=== PATIENT | male | born 1960 | race Caucasian/White ===

== ENCOUNTER 2017-03-03 21:17 | Emergency (ER) | payer OTHER ==
[~2017-03-03] VITALS: Ht 177.8 cm; Wt 108.9 kg
[~2017-03-03 21:17] MED LIST: ENOX100D3 SQ; WARF5TAB2 PO
[2017-03-03 21:21] VITALS: BP_SYST 143
[2017-03-03] MEDS ORDERED: ALBUTEROL SULFATE 0.083% 2.5 MG/3 ML VIAL.NEB IH ONE (21:45)
[2017-03-03] MEDS ORDERED: IPRATROPIUM BROM 0.5 MG/2.5 ML VIAL.NEB (ATROVENT) IH ONE (21:45)
[2017-03-03] MEDS ORDERED: ASPIRIN 81 MG TAB.CHEW PO ONE (21:45)
[2017-03-03] MEDS ORDERED: methylPREDNISolone SOD SUCC/PF 62.5 MG/ML VIAL IVP ONE (21:45)
[2017-03-03 21:58] LABS: BASOPHILS # (AUTO) 0.1 K/uL (0.0-0.2); BASOPHILS % (AUTO) 0.6 % (0.0-2.0); EOSINOPHILS # (AUTO) 0.4 K/uL (0.0-0.4); EOSINOPHILS % (AUTO) 3.8 % (0.0-4.0); HEMATOCRIT 40.9 % (36-54); HEMOGLOBIN 13.9 g/dL (14.0-18.0); LYMPHOCYTES # (AUTO) 3.2 K/uL (1.0-5.5); LYMPHOCYTES % (AUTO) 29.7 % (20.5-51.5); MEAN CORPUSCULAR HEMOGLOBIN 31 pg (27-31); MEAN CORPUSCULAR HGB CONC 34 % (32-36); MEAN CORPUSCULAR VOLUME 92 fL (79.0-98.0); MONOCYTES # (AUTO) 0.9 K/uL (0.0-1.0); MONOCYTES % (AUTO) 8.3 % (1.7-9.3); NEUTROPHILS # (AUTO) 6.1 K/uL (1.8-7.7); NEUTROPHILS % (AUTO) 57.6 % (40.0-70.0); PLATELET COUNT (AUTO) 293 K/uL (130-430); RED BLOOD CELL COUNT(AUTO) 4.46 MIL/uL (4.2-6.2); RED CELL DISTRIBUTION WIDTH 12.5 % (9.0-15.0); WHITE BLOOD COUNT (AUTO) 10.7 K/uL (4.8-10.8)
[2017-03-03 22:08] LABS: CALCIUM 9.1 mg/dL (8.4-11.0); CREATININE 1.12 mg/dL (0.55-1.30); POTASSIUM 3.7 mmol/L (3.5-5.1)
[2017-03-03 22:13] LABS: ALBUMIN 3.6 g/dL (3.4-4.8); PROTHROMBIN TIME 11.1 SECS (9.5-12.5); TOTAL BILIRUBIN 0.4 mg/dL (0.0-1.0); TOTAL PROTEIN, SERUM 7.5 g/dL (6.4-8.3)
[2017-03-03 23:15] VITALS: BP_SYST 140
== END 2017-03-03 23:05 | disposition home or self-care (01) ==
LOC: SED 21:17
DX: J20.9 Acute bronchitis, unspecified (principal); Z86.718 Personal history of other venous thrombosis and embolism
CPT/HCPCS: 36415; 71020; 80053; 82550; 83880; 84484; 85025; 85610; 85730; 93005; 94640; 96374; 99285; J2930

== ENCOUNTER 2017-04-06 07:56 | Inpatient (IN) | payer OTHER ==
[~2017-04-06] VITALS: Ht 177.8 cm; Wt 111.1 kg
[2017-04-06] VITALS (12 sets, daily range): BP systolic 91–141
--- NOTE | 2017-04-06 08:18 | NUR ---
Pt brought to room 8 c/c persistant cough and some chest discomfort, EKG in progress at bedside. Sinus tach at 148 bpm.
--- NOTE | 2017-04-06 08:21 | NUR ---
MD Hampton at bedside.
[2017-04-06 08:31] LABS: BASOPHILS # (AUTO) 0.1 K/uL (0.0-0.2); BASOPHILS % (AUTO) 0.4 % (0.0-2.0); EOSINOPHILS # (AUTO) 0.1 K/uL (0.0-0.4); EOSINOPHILS % (AUTO) 0.7 % (0.0-4.0); HEMATOCRIT 47.5 % (36-54); HEMOGLOBIN 15.6 g/dL (14.0-18.0); LYMPHOCYTES # (AUTO) 2.2 K/uL (1.0-5.5); MEAN CORPUSCULAR HEMOGLOBIN 31 pg (27-31); MEAN CORPUSCULAR HGB CONC 33 % (32-36); MEAN CORPUSCULAR VOLUME 93 fL (79.0-98.0); MONOCYTES # (AUTO) 0.9 K/uL (0.0-1.0); MONOCYTES % (AUTO) 6.9 % (1.7-9.3); NEUTROPHILS # (AUTO) 9.8 K/uL (1.8-7.7); PLATELET COUNT (AUTO) 173 K/uL (130-430); RED CELL DISTRIBUTION WIDTH 13.1 % (9.0-15.0); WHITE BLOOD COUNT (AUTO) 13.1 K/uL (4.8-10.8)
[2017-04-06 08:52] LABS: INR 1.2 (0.80-1.20); PROTHROMBIN TIME 12.5 SECS (9.5-12.5)
[2017-04-06 08:54] LABS: CALCIUM 9.5 mg/dL (8.4-11.0); CREATININE 1.08 mg/dL (0.55-1.30)
[2017-04-06 08:57] LABS: ALBUMIN 3.9 g/dL (3.4-4.8); TOTAL BILIRUBIN 1.9 mg/dL (0.0-1.0); TOTAL PROTEIN, SERUM 8.3 g/dL (6.4-8.3)
--- NOTE | 2017-04-06 10:00 | NUR ---
Pt taken to CT scan.
[2017-04-06] MEDS ORDERED: IOHEXOL 350 mgI/mL, 150 ML INFUS..BTL IV ONE (10:01)
[2017-04-06] MEDS ORDERED: NACL 0.9% 1,000 ML IV ONE (12:30)
[2017-04-06] MEDS ORDERED: *HEPARIN PER PHARMACY XX PRN (12:30)
[2017-04-06] MEDS ORDERED: POTASSIUM CHLORIDE 10 MEQ TAB.PRT.SR PO ONE (12:45)
--- NOTE | 2017-04-06 13:05 | NUR ---
Patient will be admitted to care of Dr. Ray. Admitted to ICU unit. Will go to room 2. Belongings list completed. Summary report printed. Bedside report given to Sally Toscano RN.
--- NOTE | 2017-04-06 13:10 | NUR ---
ADMISSION NOTE. PT RECEIVED IN ICU BED 2, AWAKE AND ALERT, WITH CHIEF COMPLAINT OF FEELING SHORT OF BREATH, "I ALWAYS CATCH A COLD, BEEN REALLY SICK BEFORE I CAME IN", HEART RATE SHOWING ON THE MONITOR GOING BETWEEN 146 TO 152, SINUS MODE, PAGED DR REYNA FOR ORDERS.
--- NOTE | 2017-04-06 13:13 | NUR ---
consult for dr. mario called spoke to asher dialed [phone] gallegos called spoke to ericka dialed [phone] shaffer called spoke to ericka dialed [phone]
[2017-04-06] MEDS ORDERED: HEPARIN SODIUM,PORCINE 5000 UNITS/ML VIAL IVP ONE (13:30)
[2017-04-06] MEDS ORDERED: HEPARIN SODIUM,PORCINE 3000 UNITS/0.6 ML BOLUS IVP PRN (13:30)
--- NOTE | 2017-04-06 13:45 | NUR ---
Paged dr. mario spoke to Joy dialed [phone]
--- NOTE | 2017-04-06 14:25 | NUR ---
Paged dr. mario spoke to Joy dialed [phone]
--- NOTE | 2017-04-06 14:30 | NUR ---
TEST. PT HAVE JUST HAD AN ECHOCARDIOGRAM.
--- NOTE | 2017-04-06 14:39 | NUR ---
MEDS. PT STARTED ON HEPARIN 500 IVP LOADING DOSE. HEPARIN DRIP AT 1200 UNIT/HR, PTT 27, NEXT PTT DRAW AT 2100.
[2017-04-06] MEDS: HEPARIN 25,000 UNITS in 250 ML PREMIX IV PRN (14:44)
[2017-04-06] MEDS ORDERED: DILTIAZEM HCL 125 MG in D5W 100 ML IV SCH ×2 (15:00→18:30)
[2017-04-06] MEDS ORDERED: DILTIAZEM HCL 25 MG/5 ML VIAL IVP ONE (15:00)
--- NOTE | 2017-04-06 15:36 | NUR ---
MEDS. DR REYNA RETURNED THE CALL. REPORTED PT'S STATUS, HIS CURRENT LABS, AND CARDIAC RATE. NEW ORDERS RECEIVED. NEW IV INSERTED IN LEFT HAND, USING 22 GAUGE CATHETER. CARDIZEM 20 MG IVP AND CARDIZEM DRIP AT 10 MG/HR ADMINISTERED.
--- NOTE | 2017-04-06 16:50 | NUR ---
CARDIO. NURSE PRACTITIONER ASSESSING PT. GENERAL MAINTENANCE TECHNICIAN ON ATRIAL FLUTTER.
--- NOTE | 2017-04-06 17:45 | NUR ---
PULMO CONSULT. PT SEEN AND EXAMINED BY DR FRANCISCO.
--- NOTE | 2017-04-06 18:15 | NUR ---
CARDIOLOGY CONSULT. DR REYNA IN THE ROOM TALKING TO PT.
[2017-04-06 18:30] LABS: THYROID STIMULATING HORMONE 1.36 uIu/mL (0.34-4.82)
[2017-04-06] MEDS ORDERED: METOPROLOL SUCCINATE 50 MG TAB.SR.24H (TOPROL XL) PO SCH (18:30)
--- NOTE | 2017-04-06 18:50 | NUR ---
IV DRIPS. PT REMAINS ON HEPARIN DRIP AT 1200 UNIT PER HR, CHANGED CARDIZEM DRIP TO 15 MG PER HR. HEART RATE 112, ATRIAL FLUTTER.
--- NOTE | 2017-04-06 20:00 | NUR ---
PM SHIFT ASSESSMENT, PT AAO.DENIES ANY CHEST PAIN, STATED WHEN I COUGH IT HURTS BECAUSE I HAVE PLEURISY ;.IN ATRIAL FLUTTER WITH VARYING CONDUCTION. HEPARIN DRIP INFUSING @1200UNITS /H.
[2017-04-06] MEDS ORDERED: NACL 0.9% 1,000 ML IV SCH (20:03)
[2017-04-06] MEDS: METOPROLOL TARTRATE 50 MG TABLET PO SCH (20:15)
--- NOTE | 2017-04-06 21:00 | NUR ---
VARSHA ANDRADE BY LAB,
[2017-04-06] MEDS: HEPARIN SODIUM,PORCINE 2000 UNITS/0.4 ML BOLUS IVP PRN (22:40)
--- NOTE | 2017-04-06 22:40 | NUR ---
APTT 36.7, PT ON HEPARIN PROTOCOL , HEPARIN 2000UNITS IVP GIVEN AND INCREASED HEPARIN DRIP TO 1400 UNITS /H. WILL DO APTT AGAIN AFTER 6 HRS.
[2017-04-06] MEDS ORDERED: AMIODARONE HCL 150 MG in D5W 100 ML IV SCH (22:45)
--- NOTE | 2017-04-06 22:50 | NUR ---
CALLED, ORDERS RECEIVED TO START ON AMIODARONE DRIP, AMIODARONE 150MG IV BOLUS GIVEN AND THEN STARTED THE DRIP @1 MG/MIN. CONTINUE TO BE IN ATRIAL FLUTTER.
[2017-04-06] MEDS ORDERED: AMIODARONE HCL 150 MG/3ML VIAL ONE (23:02)
[2017-04-06] MEDS ORDERED: AMIODARONE HCL 900 MG/18 ML VIAL IV ONE (23:03)
[2017-04-06] MEDS: AMIODARONE HCL 900 MG in D5W 482 ML IV SCH (23:33)
[2017-04-06] MEDS: DILTIAZEM HCL 125 MG in D5W 100 ML IV SCH (23:47)
[2017-04-07] VITALS (24 sets, daily range): BP systolic 72–135
--- NOTE | 2017-04-07 01:45 | NUR ---
SBP IN THE 70,S- 80,S. NOTIFIED DR. REYNA AND ORDERS RECEIVED TO GIVE 250 ML NS IV BOLUS AND TO DECREASE CARDIZEM TO 10 MG/H ORDERS CARRIED OUT.
--- NOTE | 2017-04-07 02:10 | NUR ---
NS IV BOLUS GIVEN AND CARDIZEM DRIP DECREASED TO 10 MG/H.
[2017-04-07] MEDS ORDERED: NS 250 ML IV ONE (02:15)
--- NOTE | 2017-04-07 03:00 | NUR ---
BP STILL LOW, CARDIZEM DRIP TAPERED TO 5 MG/H.
--- NOTE | 2017-04-07 05:30 | NUR ---
AMIODARONE DRIP NOW DOWN TO 0.5 MG/MIN PER PROTOCOL.
--- NOTE | 2017-04-07 07:00 | NUR ---
REPORT GIVEN TO ON COMING RN. PT STILL IN ATRIAL FLUTTER.
[2017-04-07 07:09] LABS: BASOPHILS # (AUTO) 0.1 K/uL (0.0-0.2); BASOPHILS % (AUTO) 0.5 % (0.0-2.0); EOSINOPHILS # (AUTO) 0.2 K/uL (0.0-0.4); EOSINOPHILS % (AUTO) 1.4 % (0.0-4.0); HEMATOCRIT 37.6 % (36-54); HEMOGLOBIN 13.1 g/dL (14.0-18.0); LYMPHOCYTES # (AUTO) 4.1 K/uL (1.0-5.5); LYMPHOCYTES % (AUTO) 35.3 % (20.5-51.5); MEAN CORPUSCULAR HEMOGLOBIN 32 pg (27-31); MEAN CORPUSCULAR HGB CONC 35 % (32-36); MEAN CORPUSCULAR VOLUME 93 fL (79.0-98.0); MONOCYTES # (AUTO) 0.8 K/uL (0.0-1.0); MONOCYTES % (AUTO) 6.8 % (1.7-9.3); NEUTROPHILS # (AUTO) 6.3 K/uL (1.8-7.7); PLATELET COUNT (AUTO) 122 K/uL (130-430); RED BLOOD CELL COUNT(AUTO) 4.05 MIL/uL (4.2-6.2); RED CELL DISTRIBUTION WIDTH 13.3 % (9.0-15.0); WHITE BLOOD COUNT (AUTO) 11.5 K/uL (4.8-10.8)
[2017-04-07] MEDS: METOPROLOL TARTRATE 50 MG TABLET PO SCH ×3 (07:11→21:48)
[2017-04-07 07:21] LABS: ALBUMIN 3.1 g/dL (3.4-4.8); CALCIUM 8.6 mg/dL (8.4-11.0); CREATININE 0.88 mg/dL (0.55-1.30); POTASSIUM 3.2 mmol/L (3.5-5.1); TOTAL BILIRUBIN 1.2 mg/dL (0.0-1.0); TOTAL PROTEIN, SERUM 6.7 g/dL (6.4-8.3)
--- NOTE | 2017-04-07 07:45 | NUR ---
AM ASSESSMENT. PT ALERT, ON ROOM AIR, SMILES WHEN APPROACHED, RECEIVING HEPARIN DRIP AT 1400 UNIT/HR, AMIODARONE DRIP AT 0.5 MG/HR, CARDIZEM DRIP AT 5 MG PER HR, NS AT 70 ML PER HR, IV SITE CLEAR, NO S/SX OF INFILTRATION, RADIOLOGY SPECIAL PROCEDURE TECH ON ATRIAL FLUTTER, CONTINUE TO MONITOR.
[2017-04-07] MEDS: HEPARIN 25,000 UNITS in 250 ML PREMIX IV PRN ×2 (07:52→21:47)
--- NOTE | 2017-04-07 08:30 | NUR ---
IV DRIPS. PTT 41, TITRATED HEPARIN DRIP TO 1500 UNIT/HR, WILL CHECK PTT AT 1430 TODAY.
[2017-04-07] MEDS ORDERED: POTASSIUM CHLORIDE 20 MEQ TAB.PRT.SR PO ONE (09:30)
--- NOTE | 2017-04-07 10:00 | NUR ---
ACTIVITY. PT DESIRED TO USE THE COMMODE, WITH GOOD RANGE OF MOTION, MILD ASSIST WITH PERSONAL HYGIENE, LINEN AND GOWN, CHG WIPES AND WET WIPES USED, TOOTH PASTE AND TOOTH BRUSH PROVIDED FOR ORAL CARE.
--- NOTE | 2017-04-07 13:10 | NUR ---
PARENT EDUCATOR. DR REYNA CAME IN AND WENT TO SEE PT, PLAN TO DO CARDIOVERSION. WILL DO TOMORROW, PT ALREADY HAD HIS LUNCH.
[2017-04-07] MEDS: HEPARIN SODIUM,PORCINE 2000 UNITS/0.4 ML BOLUS IVP PRN (17:11)
--- NOTE | 2017-04-07 17:14 | NUR ---
IV DRIPS. PTT 40.6, FOLLOWED PROTOCOL WITH 2000 UNITS IVP OF HEPARIN, THEN ADJUSTED RATE TO 1700 UNIT PER HR.
--- NOTE | 2017-04-07 19:00 | NUR ---
REPORT. GIVEN TO ONCOMING NURSE.
--- NOTE | 2017-04-07 19:30 | NUR ---
PM ASSESSMENT PT AWAKE, AFEBRILE. RA, AUSCULTATED BILAT LUNGS CLEAR, NO SOB OR DISTRESS. AFLUTTER ON THE MONITOR. AMBULATES W/ STEADY GAIT. IV SITE ON THE LT HAND 22G, INTACT AND PATENT. IV SITE ON LT AC 20G, INTACT AND PATENT. INFUSING HEPARIN, CARDIZEM AND AMIODARONE. POC DISCUSSED, PT STATED UNDERSTANDING, ORIENTED TO CALL LIGHT & W/IN, SAFETY PRECAUTIONS IN PLACE, WILL CONTINUE TO MONITOR.
--- NOTE | 2017-04-07 19:30 | NUR ---
REFUSE BEDPAN PT EDUCATED ABOUT DX OF DVT AND IMPORTANCE OF BEDREST, PT STILL REFUSES TO USES BEDPAN AND STATES HE WILL ONLY USE THE BEDSIDE TOILET. ASSISTED PT TO TOILET, PT TOLERATED WELL. CALL LIGHT W/IN REACH, SAFETY PRECAUTIONS IN PLACE.
[2017-04-07] MEDS ORDERED: AMIODARONE HCL 900 MG/18 ML VIAL IV ONE (21:33)
[2017-04-07] MEDS ORDERED: DILTIAZEM HCL 125 MG/25 ML VIAL IV ONE (21:34)
[2017-04-07] MEDS: AMIODARONE HCL 900 MG in D5W 482 ML IV SCH (21:42)
[2017-04-07] MEDS: DILTIAZEM HCL 125 MG in D5W 100 ML IV SCH (21:43)
--- NOTE | 2017-04-07 23:00 | NUR ---
DR. AXEL REYNA CALLED REGARDING CARDIOVERSION IN THE AM.
[2017-04-08] VITALS (15 sets, daily range): BP systolic 69–128
[2017-04-08] MEDS: HEPARIN 25,000 UNITS in 250 ML PREMIX IV PRN (01:25)
[2017-04-08] MEDS ORDERED: fentaNYL CITRATE/PF 100 MCG/2 ML AMP IVP ONE (07:15)
[2017-04-08] MEDS ORDERED: MIDAZOLAM HCL 5 MG/5 ML VIAL IVP ONE (07:15)
--- NOTE | 2017-04-08 07:15 | NUR ---
CLOSING NOTE ALL NEEDS MET. ENDORSED CARE AT BEDSIDE TO ICU NURSE.
--- NOTE | 2017-04-08 07:22 | NUR ---
CARDIOVERSION Dr. Flynn at bedside. MD ordered fentanyl 50 mcg IVP and Versed 2 mg IVP at bedside. Medication administered with MD at bedside. Addendum: 04/08/17 at 0750 by Fidel Hay RN Patient Cardioverted per MD order. Patient converted to sinus rhythm. Nurse remains at bedside to monitor.
[2017-04-08] MEDS ORDERED: fentaNYL CITRATE/PF 100 MCG/2 ML AMP ONE (07:23)
[2017-04-08] MEDS ORDERED: MIDAZOLAM HCL 5 MG/5 ML VIAL ONE (07:24)
--- NOTE | 2017-04-08 07:50 | NUR ---
BEGINNING OF SHIFT ASSESSMENT Received patient awake,alert and oriented x 4, conversing with Dr. Ray at bedside. Patient is sinus rhythm on air sampling and monitoring. Clear lung sounds heard through out. Patient has Left AC #20, all port patent, flushable with blood return, no redness, infection noted. Patient voids using urinal at bedside for safety. Bed is locked in lowest position, call light within easy reach, upper side rails x 2 up, HOB elevated. Will continue to monitor closely.
[2017-04-08] MEDS ORDERED: AMIODARONE HCL 200 MG TABLET PO ONE (08:00)
--- NOTE | 2017-04-08 08:20 | NUR ---
PT UPDATE Patient resting in bed, sitting upright conversing with Dr. Bowers at bedside, no signs of distress, vss noted. Will continue to monitor closely.
[2017-04-08] MEDS: RIVAROXABAN 15 MG TABLET PO SCH ×2 (08:36→21:43)
[2017-04-08 08:37] LABS: BASOPHILS # (AUTO) 0.1 K/uL (0.0-0.2); BASOPHILS % (AUTO) 0.3 % (0.0-2.0); EOSINOPHILS # (AUTO) 0.1 K/uL (0.0-0.4); EOSINOPHILS % (AUTO) 0.6 % (0.0-4.0); HEMATOCRIT 37.4 % (36-54); HEMOGLOBIN 12.7 g/dL (14.0-18.0); LYMPHOCYTES # (AUTO) 2.9 K/uL (1.0-5.5); LYMPHOCYTES % (AUTO) 17.3 % (20.5-51.5); MEAN CORPUSCULAR HEMOGLOBIN 32 pg (27-31); MEAN CORPUSCULAR HGB CONC 34 % (32-36); MEAN CORPUSCULAR VOLUME 94 fL (79.0-98.0); MONOCYTES # (AUTO) 0.6 K/uL (0.0-1.0); MONOCYTES % (AUTO) 3.8 % (1.7-9.3); NEUTROPHILS # (AUTO) 13.3 K/uL (1.8-7.7); PLATELET COUNT (AUTO) 144 K/uL (130-430); RED CELL DISTRIBUTION WIDTH 13.5 % (9.0-15.0)
[2017-04-08] MEDS: METOPROLOL TARTRATE 50 MG TABLET PO SCH ×2 (08:46→21:43)
[2017-04-08 08:56] LABS: ALBUMIN 3.3 g/dL (3.4-4.8); CALCIUM 8.8 mg/dL (8.4-11.0); CREATININE 0.96 mg/dL (0.55-1.30); POTASSIUM 3.4 mmol/L (3.5-5.1); TOTAL BILIRUBIN 1.3 mg/dL (0.0-1.0); TOTAL PROTEIN, SERUM 7.1 g/dL (6.4-8.3)
--- NOTE | 2017-04-08 10:00 | NUR ---
TRANSFER TO TELE Patient transferred to tele via gurney via [employer] with licensed staff x 2. IV site patent, no redness, infection noted. No IVF infusing at this time. Report given to nurse at bedside. No signs of distress, vss noted.
--- NOTE | 2017-04-08 10:05 | NUR ---
PATIENT TRANSFERRED FROM ICU PATIENT ALERT AND ORIENTED X4, NO S/S OF ACUTE DISTRESS NOTED, BREATHING EVEN AND UNLABORED, VSS, IV TO LAC INTACT, SALINE LOCKED, PT ORIENTED TO ROOM AND USE OF CALL LIGHT AND PHONE, COMMONLY USED ITEMS PLACED WITHIN REACH, PT HAS STEADY GAIT, PT EDUCATED REGARDING CALL FOR ASSISTANCE TO RESTROOM, SINCE HE IS NEW STEP DOWN FROM ICU, PT VERBALIZED UNDERSTANDING, BED ALARM REFUSED, PT STATES HE WILL CALL, COMMONLY USED ITEMS PLACED WITHIN REACH, SAFETY MEASURES IN PLACE, WILL MONITOR CLOSELY
--- NOTE | 2017-04-08 12:00 | NUR ---
ROUNDS PT UP AND WALKING AROUND UNIT WITH WHOLESALE LOAN PROCESSOR, STEADY GAIT NOTED, NO C/O PAIN OR SOB, PT RETURNED TO BED, SAFETY MEASURES IN PLACE, CALL LIGHT WITHIN REACH, WILL CONTINUE TO MONITOR CLOSELY
[2017-04-08] MEDS: AMIODARONE HCL 200 MG TABLET PO SCH ×2 (13:05→21:43)
--- NOTE | 2017-04-08 14:00 | NUR ---
ROUNDS PT SITTING UP IN BED, FRIEND AT BEDSIDE, TALKING, NO S/S OF ACUTE DISTRESS OR SOB, PT STATES HE HAS NO NEEDS AT THIS TIME, CALL LIGHT WITHIN REACH, PT AWARE TO CALL AND ASK FOR ASSISTANCE, WILL FOLLOW UP
--- NOTE | 2017-04-08 15:28 | NUR ---
rounds pt laying in bed, resting, eyes closed, even rise and fall of chest noted, safety measures in place, call light within reach, will continue to monitor
--- NOTE | 2017-04-08 17:04 | NUR ---
ROUNDS PT LAYING IN BED, RESTING, FRIEND AT BEDSIDE, NO SOB NOTED, PT STABLES, DENIES ANY PAIN, STATES HE HAS NO NEEDS AT THIS TIMES, SAFETY MEASURES IN PLACE, CALL LIGHT WITHIN REACH, WILL CONTINUE TO MONITOR
[2017-04-08] MEDS ORDERED: RIVAROXABAN 10 MG TABLET PO SCH (18:00)
--- NOTE | 2017-04-08 18:48 | NUR ---
CLOSING NOTE PT LAYING IN BED, STABLE, NO S/S OF SYMPTOMS OF ACUTE DISTRESS OR SOB NOTED, VSS, TELEMONITOR IN PLACE, IV TO LAC SALINE LOCKED, ALL NEEDS ATTENDED TO THROUGHOUT SHIFT, SAFETY MEASURES MAINTAINED, CALL LIGHT WITHIN REACH, BED IN LOW POSITION AND LOCKED, WILL GIVE REPORT TO FOLLOWING SHIFT
--- NOTE | 2017-04-08 19:40 | NUR ---
INITIAL NOTE PT. RECEIVED RESTING IN BED, ALERT AND ORIENTED. NO S/S OF SOB OR DISTRESS. PT. DENIES PAIN OR DISCOMFORT AT THIS TIME. VSS. PT SATING WELL ON ROOM AIR. IV ACCESS NOTED TO LEFT AC, #20 AND LEFT HAND # 22, BOTH SALINE LOCK. NO REDNESS OR SWELLING TO THE SITE. MINOR BLE EDEMA NOTED. PLAN OF CARE DISCUSSED WITH THE PT., VERBALIZES UNDERSTANDING. AGREES TO USE THE CALL LIGHT FOR SAFETY PRIOR TO AMBULATING. WILL CONTINUE TO MONITOR FOR ANY CHANGES. SAFETY AND FALL PRECAUTIONS IN PLACE. CALL LIGHT IN REACH. BED ALARM ON.
--- NOTE | 2017-04-08 22:09 | NUR ---
ROUNDS ASSISTED PT. TO THE RESTROOM. PT. VOIDED FREELY. ASSISTED BACK TO BED AND IN A COMFORTABLE POSITION. NO S/S OF SOB OR DISTRESS NOTED. PT DENIES PAIN AT THIS TIME. PM MEDICATIONS WERE GIVEN AND MEDICATION EDUCATION PROVIDED. ALL NEEDS MET AT THIS TIME. ENCOURAGED PT. TO USE CALL LIGHT. VERBALIZES UNDERSTANDING. WILL CONTINUE TO MONITOR FOR CHANGES. SAFETY AND FALL PRECAUTIONS IN PLACE. CALL LIGHT IN REACH. BED ALARM ON.
[2017-04-09] VITALS (8 sets, daily range): BP systolic 107–145
--- NOTE | 2017-04-09 00:49 | NUR ---
ROUNDS PT. RESTING IN BED WITH EYES CLOSED. BREATHING IS EASY AND UNLABORED. NO SIGNS OF ACUTE DISTRESS NOTED. WILL CONTINUE TO MONITOR FOR CHANGES. SAFETY AND FALL PRECAUTIONS IN PLACE. CALL LIGHT IN REACH.
--- NOTE | 2017-04-09 02:31 | NUR ---
ROUNDS PT. RESTING IN BED WITH EYES CLOSED. CHEST RISE AND FALL NOTED. NO S/S OF ACUTE DISTRESS NOTED. NO FACIAL GRIMACING INDICATING PAIN. WILL CONTINUE TO MONITOR FOR CHANGES. SAFETY AND FALL PRECAUTIONS IN PLACE. CALL LIGHT IN REACH.
--- NOTE | 2017-04-09 04:28 | NUR ---
ROUNDS PT. RESTING IN BED, NO SIGNS OF ACUTE DISTRESS NOTED. PT SHOWS SINUS RHYTHM ON THE MONITOR. WILL CONTINUE TO MONITOR FOR CHANGES. SAFETY AND FALL PRECAUTIONS IN PLACE. CALL LIGHT IN REACH.
[2017-04-09] MEDS: AMIODARONE HCL 200 MG TABLET PO SCH ×3 (05:34→21:01)
--- NOTE | 2017-04-09 06:35 | NUR ---
CLOSING NOTE PT. RESTING IN BED QUIETLY. NO S/S OF SOB OR DISTRESS. NO FACIAL GRIMACING INDICATING PAIN. ALL NEEDS MET THROUGHOUT THE SHIFT. SAFETY AND FALL PRECAUTIONS WERE MAINTAINED. WILL ENDORSE CARE TO AM NURSE. CALL LIGHT IN REACH, BED IN LOWEST LOCKED POSITION.
[2017-04-09 06:53] LABS: BASOPHILS % (AUTO) 0.2 % (0.0-2.0); EOSINOPHILS # (AUTO) 0.1 K/uL (0.0-0.4); EOSINOPHILS % (AUTO) 0.6 % (0.0-4.0); HEMATOCRIT 34.8 % (36-54); HEMOGLOBIN 11.9 g/dL (14.0-18.0); LYMPHOCYTES # (AUTO) 2.3 K/uL (1.0-5.5); LYMPHOCYTES % (AUTO) 13.9 % (20.5-51.5); MEAN CORPUSCULAR HEMOGLOBIN 32 pg (27-31); MEAN CORPUSCULAR HGB CONC 34 % (32-36); MEAN CORPUSCULAR VOLUME 94 fL (79.0-98.0); MONOCYTES # (AUTO) 0.7 K/uL (0.0-1.0); MONOCYTES % (AUTO) 4.2 % (1.7-9.3); NEUTROPHILS # (AUTO) 13.4 K/uL (1.8-7.7); NEUTROPHILS % (AUTO) 81.1 % (40.0-70.0); PLATELET COUNT (AUTO) 130 K/uL (130-430); RED BLOOD CELL COUNT(AUTO) 3.69 MIL/uL (4.2-6.2); RED CELL DISTRIBUTION WIDTH 13.4 % (9.0-15.0); WHITE BLOOD COUNT (AUTO) 16.5 K/uL (4.8-10.8)
--- NOTE | 2017-04-09 08:00 | NUR ---
OPENING NOTE PT SITTING UP IN BED, EATING BREAKFAST, ALERT AND ORIENTED X4, NO S/S OF ACUTE DISTRESS, VSS, TELEMONITOR IN PLACE , PT REORIENTED TO USE OF CALL LIGHT, PLAN OF CARE DISCUSSED, PT VERBALIZED UNDERSTANDING, SAFETY MEASURES IN PLACE, WILL FOLLOW UP
[2017-04-09] MEDS: METOPROLOL SUCCINATE 50 MG TAB.SR.24H (TOPROL XL) PO SCH (08:53)
[2017-04-09] MEDS: RIVAROXABAN 15 MG TABLET PO SCH ×2 (08:53→21:02)
--- NOTE | 2017-04-09 10:00 | NUR ---
ROUNDS PT NOTED TO BE WALKING AROUND UNIT, STEADY GAIT NOTED, NO S/S OF WEAKNESS, PT STATES HE IS FEELING BETTER, WILL CONTINUE TO MONITOR
--- NOTE | 2017-04-09 11:12 | NUR ---
Nutrition Update Shayan Scale 18 noted. Pt admitted for DVT, tachycardia. Diet: regular BMI: 35.2 kg/m2 RD to follow per nutrition care standards.
--- NOTE | 2017-04-09 12:00 | NUR ---
ROUNDS PT SITTING UP IN BED, FRIEND AT BEDSIDE, STABLE, PT STATES HE HAS NO NEEDS AT THIS TIME, CALL LIGHT PLACED WITHIN REACH, WILL CONTINUE TO MONITOR
--- NOTE | 2017-04-09 14:00 | NUR ---
MED PASS BLOOD PRESSURE 142/62, HR 81, BLOOD PRESSURE MEDICATION ADMINISTERED, SAFETY MEASURES IN PLACE, CALL LIGHT WITHIN REACH, WILL FOLLOW UP
--- NOTE | 2017-04-09 16:00 | NUR ---
ROUNDS PT SEEN WALKING AROUND UNIT, STEADY GAIT, APPEARS CALM RELAXED, WILL FOLLOW UP WITH PATIENT
--- NOTE | 2017-04-09 19:00 | NUR ---
CLOSING NOTE PT LAYING IN BED, NO S/S OF ACUTE DISTRESS OR PAIN, VSS, ALL NEEDS ATTENDED TO THROUGH OUT SHIFT, SAFETY MEASURES MAINTAINED, BED IN LOW POSITION AND LOCKED, WILL GIVE REPORT TO FOLLOWING SHIFT
--- NOTE | 2017-04-09 19:30 | NUR ---
notes received the pt from the day nurse,pt a/a/ox4.denies pain and discomfort.watching tv.monitor in place and shows SR,iv intact to lt ac and lt hand.no redness or swelling noted.call light within reach,safety measres in progress.will continue to monitor.
--- NOTE | 2017-04-09 20:01 | NUR ---
notes pt ambulating in the [address] with no complaints.
--- NOTE | 2017-04-09 20:20 | NUR ---
NOTES MED.NEB. TREATMENT GIVEN BY RESPIRATORY THERAPIST.
[2017-04-09] MEDS: IPRATROPIUM BROM 0.5 MG/2.5 ML VIAL.NEB (ATROVENT) INH SCH (20:27)
--- NOTE | 2017-04-09 21:25 | NUR ---
NOTES PT WATCHING TV WITH NO COMPLAINTS.CONTINUE TO MONITOR.
--- NOTE | 2017-04-10 00:38 | NUR ---
NOTES SANDWICH AND JUICE GIVEN PER REQUEST.PT AWAKE WATCHING TV AND STATES HE IS WAITING FOR HIS BREATHING TREATMENT.
--- NOTE | 2017-04-10 01:25 | NUR ---
NOTES MED NEB TREATMENT WAS GIVEN BY RESPIRATORY THERAPIST.CONTINUE TO MONITOR.
--- NOTE | 2017-04-10 03:16 | NUR ---
NOTES PT RESTING,CALL LIGHT WITHIN REACH.CONTINUE TO MONITOR.
[2017-04-10 03:54] VITALS: BP_SYST 111
--- NOTE | 2017-04-10 05:30 | NUR ---
notes pt sleeping,call light within reach.continue to monitor
[2017-04-10] MEDS: AMIODARONE HCL 200 MG TABLET PO SCH ×2 (05:47→14:11)
--- NOTE | 2017-04-10 06:18 | NUR ---
CLOSING NOTES PT AWAKE ALERT,BLOOD DRAWN BY THE MARINE ANIMAL TRAINER.WILL ENDORSE THE CARE OF THE PT TO THE DAY NURSE.
[2017-04-10 06:53] LABS: BASOPHILS % (AUTO) 0.3 % (0.0-2.0); EOSINOPHILS # (AUTO) 0.1 K/uL (0.0-0.4); EOSINOPHILS % (AUTO) 0.9 % (0.0-4.0); HEMATOCRIT 32.6 % (36-54); HEMOGLOBIN 11.5 g/dL (14.0-18.0); LYMPHOCYTES # (AUTO) 2.4 K/uL (1.0-5.5); MEAN CORPUSCULAR HEMOGLOBIN 33 pg (27-31); MEAN CORPUSCULAR HGB CONC 35 % (32-36); MEAN CORPUSCULAR VOLUME 93 fL (79.0-98.0); MONOCYTES % (AUTO) 7.7 % (1.7-9.3); NEUTROPHILS # (AUTO) 9.3 K/uL (1.8-7.7); NEUTROPHILS % (AUTO) 72.1 % (40.0-70.0); PLATELET COUNT (AUTO) 126 K/uL (130-430); RED BLOOD CELL COUNT(AUTO) 3.52 MIL/uL (4.2-6.2); RED CELL DISTRIBUTION WIDTH 13.5 % (9.0-15.0); WHITE BLOOD COUNT (AUTO) 12.8 K/uL (4.8-10.8)
[2017-04-10] MEDS: IPRATROPIUM BROM 0.5 MG/2.5 ML VIAL.NEB (ATROVENT) INH SCH ×2 (07:22→13:00)
--- NOTE | 2017-04-10 07:49 | NUR ---
INITIAL NOTE PT LAYING IN BED, NO S/S OF ACUTE DISTRESS OR PAIN, FINISHED BREAKFAST. SAFETY MEASURES MAINTAINED, BED IN LOW POSITION AND LOCKED, WILL GIVE CONTINUE TO FOLLOWING SHIFT.
[2017-04-10 08:00] VITALS: BP_SYST 118
[2017-04-10] MEDS: METOPROLOL SUCCINATE 50 MG TAB.SR.24H (TOPROL XL) PO SCH (09:16)
[2017-04-10] MEDS: RIVAROXABAN 15 MG TABLET PO SCH (09:16)
--- NOTE | 2017-04-10 10:52 | NUR ---
RN ROUNDS: PT AWAKE AND ALERT ,WALK AROUND , WATCHING TV .WAITING FOR DIS CHARGE.
--- NOTE | 2017-04-10 12:00 | NUR ---
RN ROUNDS: PT TAKE MEDICATION .AND WALK AROUND WILLING TO DISCHARGE.LUNCH TAKEN BY HIMSELF
[2017-04-10 12:02] VITALS: BP_SYST 121
--- NOTE | 2017-04-10 14:00 | NUR ---
RN ROUNDS: PT IS AWAKE ALERT ,NO DISTRESS.
[2017-04-10 15:14] VITALS: BP_SYST 120
[2017-04-10] MEDS ORDERED: METO-442 PO (15:22)
[2017-04-10] MEDS ORDERED: APIX5TAB PO (15:23)
[2017-04-10] MEDS ORDERED: AMI200 PO (15:24)
--- NOTE | 2017-04-10 15:53 | NUR ---
D/C Patient Patient given medication reconciliation form and D/C instructions. Exit Care provided. Patient verbalized understanding. MD discussed with patient the results and treatment provided. Ambulatory with steady gait for discharge to home. Patient in stable condition, ID band removed. IV catheter removed, intact and dressing applied, no active bleeding. Rx of Amiodorone, Eliquis, and Lopressor given. Patient educated on pain management. All belongings sent with patient.
[2017-04-10 20:56] LABS: HEPARIN INDUCED PLT AB 0.224 OD (0.000-0.400); PROTEIN S ACTIVITY 115 % (63-140)
== END 2017-04-10 15:53 | disposition home or self-care (01) | DRG 309 ==
LOC: SED 07:56 → SIC 12:29 → STU 04-08 10:10
PROVIDERS: ADMIT Internal Medicine Hospice and Palliative Medicine; ATTEND Internal Medicine Hospice and Palliative Medicine
PROC: 5A2204Z Restoration of Cardiac Rhythm, Single (ICD-10-PCS; principal; 2017-04-08)
DX: I48.92 Unspecified atrial flutter (principal); I50.32 Chronic diastolic (congestive) heart failure; I82.403 Acute embolism and thrombosis of unspecified deep veins of lower extremity, bilateral; I10 Essential (primary) hypertension; F17.200 Nicotine dependence, unspecified, uncomplicated; I11.0 Hypertensive heart disease with heart failure; Z96.659 Presence of unspecified artificial knee joint; I47.1 Supraventricular tachycardia; Z79.01 Long term (current) use of anticoagulants
CPT/HCPCS: 36415; 71010; 71275; 80053; 80061; 83735-TC; 83891; 83894; 83898; 83912; 84443-TC; 84484; 85025; 85306; 85379; 85610-TC; 85730-TC; 86022; 86147; 87081; 93005; 93306; 93970; 94640; 94760; 99285; J0282; J1644; J2250; J3010; J3490; J7030; J7060; Q9967

== ENCOUNTER 2017-09-28 07:56 | Emergency (ER) | payer OTHER ==
[~2017-09-28] VITALS: Ht 177.8 cm; Wt 108.9 kg
[~2017-09-28 07:56] MED LIST changes: +AMI200 PO; +APIX5TAB PO; +DILT180C69 PO; -ENOX100D3 SQ; +METO-442 PO; -WARF5TAB2 PO
[2017-09-28 07:59] VITALS: BP_SYST 140
--- NOTE | 2017-09-28 08:04 | NUR ---
Pt placed in bed 5, report endorsed to Ramón SARMIENTO
--- NOTE | 2017-09-28 08:10 | NUR ---
ER Dr. Garay at bedside examining patient.
--- NOTE | 2017-09-28 08:11 | NUR ---
Pt presents to ED c/o R arm pain. Pt reports expresses concerns of blood clots. Pt requesting evalulation to r/o DVT.
--- NOTE | 2017-09-28 08:20 | NUR ---
Pt medicated tolerated well.
[2017-09-28] MEDS: KETOROLAC TROMETHAMINE 60 MG/2 ML VIAL IM ONE (08:27)
--- NOTE | 2017-09-28 08:39 | NUR ---
US at bedside.
[2017-09-28 09:32] VITALS: BP_SYST 135
--- NOTE | 2017-09-28 09:32 | NUR ---
Patient given written and verbal discharge instructions and verbalizes understanding. ER MD discussed with patient the results and treatment provided. Patient in stable condition. ID arm band removed. Rx of Eliquis and Motrin given. Patient educated on pain management and to follow up with PMD. Pain Scale 2. Opportunity for questions provided and answered.
== END 2017-09-28 09:32 | disposition home or self-care (01) ==
LOC: SED 07:56
DX: I82.611 Acute embolism and thrombosis of superficial veins of right upper extremity (principal); Z79.899 Other long term (current) drug therapy
CPT/HCPCS: 93971; 96372; 99284; J1885